=== PATIENT | female | born 1950 | race Caucasian/White ===

== ENCOUNTER 2016-07-13 07:07 | Day surgery (SDC) | payer BC ==
[~2016-07-13] VITALS: Ht 160 cm; Wt 100.0 kg
[2016-07-13] VITALS (13 sets, daily range): BP systolic 106–135; BP diastolic 56–75; PULSE 77–92; TEMP 97.2–98.4
[~2016-07-13 07:07] MED LIST: ALBUTEROL0.09 MG/A1 IH; AMARYL2 MG PO; AMARYL4 MG PO; ASPIRIN 32325 MG/TA1 PO; ASPIRIN E.C. 8181 MG PO; AZITHROMYCIN PO; BENICAR PO; BLOOD PRESSURE PILL; CALCARB 600 W/V1 TA1 PO; CALCIUM CARBONATE; CIPRO 500MG TA500 MG PO; CIPROFLOXACIN PO; CLARITIN; CLARITIN-D 10 M1 T24 PO; COMPLETE VITAMI PO; EFFEXOR 75M75 MG/TAB PO; FISH OIL CONC1000 MG PO; FLAGYL500 MG PO; FLOMAX 0.40.4 MG/CAP PO; FORTAMET1000 MG PO; GLUCOPHAGE1000 MG PO; JANUVIA 100MG100 MG PO; LANTUS100 U/ML SQ; LASIX 20MG TABL20 MG PO; LEVAQUIN 5500 MG/TA1 PO; MASON NATURAL1200 MG PO; NATURAL IRON65 MG PO; NORCO 325 MG-51 TAB PO; ONE DAILY MULTI1 TA1 PO; PERCOCET 325 MG1 TA2 PO; PREDNISONE20 MG PO; PRILOSEC 20MG20 MG PO; PRILOSEC10 MG/Pack PO; PROAIR HFA0.09 MG/AC IH; SINGULAIR 110 MG/TAB PO; TYLENOL 325MG325 MG PO; ULTRAM 50MG TAB50 MG PO; ZANTAC 150MG T150 MG PO; ZOCOR 40MG40 MG PO; ZOCOR40 MG PO; ZOFRAN 4MG T4 MG/TAB PO
[2016-07-13 07:51] LABS: HEMATOCRIT 38.2 % (37.0-47.0); HEMOGLOBIN 12.3 g/dl (12.5-16.0); MEAN CELL VOLUME 85 fl (80.0-100.0); MEAN CORPUSCULAR HEMOGLOBIN 27 pg (27.0-31.0); MEAN CORPUSCULAR HGB CONC 32 g/dl (33.0-37.0); MEAN PLATELET VOLUME 9.5 fl (7.4-10.4); PLATELET COUNT 204 K/mm3 (130-400); WHITE BLOOD COUNT 5.3 K/mm3 (4.8-10.8)
[2016-07-13 07:56] LABS: INR 1.1 (0.8-3.0); PROTHROMBIN TIME 12.4 SECONDS (9.7-12.8)
[2016-07-13 08:23] LABS: CALCIUM 9.7 mg/dL (8.4-10.2); CREATININE, serum 0.88 mg/dL (0.52-1.25); POTASSIUM 4.4 mmol/L (3.4-5.0)
[2016-07-13] MEDS ORDERED: ZYRTEC 10MG10 MG PO (08:34)
[2016-07-13] MEDS ORDERED: LEVEMIR FLEX100 U/ML SQ (08:39)
[2016-07-13] MEDS ORDERED: VICTOZA6 MG/ML SQ (08:40)
[2016-07-13] MEDS ORDERED: BENICAR 20MG TA20 MG PO (08:41)
[2016-07-13] MEDS ORDERED: TOPROL XL 25MG25 MG PO (08:46)
== END 2016-07-13 15:23 | disposition home or self-care (01) ==
LOC: COL.RAD 07:07
PROVIDERS: Internal Medicine Cardiovascular Disease
DX: I25.10 Atherosclerotic heart disease of native coronary artery without angina pectoris (principal); R94.31 Abnormal electrocardiogram [ECG] [EKG]; R07.89 Other chest pain; F32.9 Major depressive disorder, single episode, unspecified; I47.1 Supraventricular tachycardia; E11.319 Type 2 diabetes mellitus with unspecified diabetic retinopathy without macular edema; I08.0 Rheumatic disorders of both mitral and aortic valves; Z87.19 Personal history of other diseases of the digestive system; Z85.828 Personal history of other malignant neoplasm of skin; E78.2 Mixed hyperlipidemia; I10 Essential (primary) hypertension; M19.90 Unspecified osteoarthritis, unspecified site; E55.9 Vitamin D deficiency, unspecified; Z96.641 Presence of right artificial hip joint; Z79.82 Long term (current) use of aspirin; Z79.899 Other long term (current) drug therapy; Z79.84 Long term (current) use of oral hypoglycemic drugs; Z79.4 Long term (current) use of insulin; Z87.891 Personal history of nicotine dependence
CPT/HCPCS: C1760; J2250; J3010; Q9967

== ENCOUNTER → 2017-10-04 | Outpatient (CLI) | payer MEDICARE, OTHER ==
[~2017-10-04] MED LIST changes: +BENICAR 20MG TA20 MG PO; +LEVEMIR FLEX100 U/ML SQ; +TOPROL XL 25MG25 MG PO; +VICTOZA6 MG/ML SQ; +ZYRTEC 10MG10 MG PO
== END ==
LOC: COL.RAD 09:45
DX: Z01.812 Encounter for preprocedural laboratory examination (principal); M99.71 Connective tissue and disc stenosis of intervertebral foramina of cervical region; M50.23 Other cervical disc displacement, cervicothoracic region; M47.812 Spondylosis without myelopathy or radiculopathy, cervical region; M48.04 Spinal stenosis, thoracic region; Z96.7 Presence of other bone and tendon implants
CPT/HCPCS: A9585

== ENCOUNTER 2019-01-26 14:46 | Emergency (ER) | payer MEDICARE, OTHER ==
[~2019-01-26] VITALS: Ht 160 cm; Wt 93.6 kg
[~2019-01-26 14:46] MED LIST changes: +BUSPAR10 MG PO; +BYDUREON PEN2 MG SQ; +CALTRATE-600 W600 MG PO; +FOLIC ACID 40400 MCG PO; +TOPROL XL 50MG50 MG PO; +VITAMIN C500 MG PO
[2019-01-26 14:53] VITALS: TEMP 97.6
[2019-01-26 15:44] LABS: BASO % 0.3 % (0.0-2.0); EOS % 0.3 % (0-4.0); GRAN # 6.9 (1.4-6.5); HEMOGLOBIN 10.1 g/dl (12.5-16.0); LYMPH # 0.5 (1.2-3.4); LYMPH % 6.5 % (20.0-51.0); MEAN CELL VOLUME 81 fl (80.0-100.0); MEAN CORPUSCULAR HEMOGLOBIN 24 pg (27.0-31.0); MEAN CORPUSCULAR HGB CONC 30 g/dl (33.0-37.0); MEAN PLATELET VOLUME 9.4 fl (7.4-10.4); MONO # 0.5 (0.1-0.6); MONO % 6.6 % (1.7-9.3); PLATELET COUNT 192 K/mm3 (130-400); RED BLOOD COUNT 4.14 M/mm3 (4.10-5.30); REDCELL DISTRIBUTION WIDTH-CV 17.2 % (11.5-14.5)
[2019-01-26 15:46] LABS: HEMATOCRIT 33.4 % (37.0-47.0)
[2019-01-26 15:54] LABS: ALBUMIN 4.1 gm/dL (3.5-5.0); BILIRUBIN,TOTAL 0.4 mg/dL (0.0-1.0); CALCIUM 9.2 mg/dL (8.4-10.2); CREATININE, serum 0.88 (0.52-1.25); POTASSIUM 4.1 mmol/L (3.4-5.0); TOTAL PROTEIN 7.5 gm/dL (6.4-8.2)
[2019-01-26] MEDS ORDERED: BACTRIM DS 8001 TAB PO (18:08)
[2019-01-26 18:31] VITALS: BP 103/48; PULSE 93
== END 2019-01-26 18:31 | disposition home or self-care (01) ==
LOC: COL.ER 14:46
PROVIDERS: Emergency Medicine
DX: M96.842 Postprocedural seroma of a musculoskeletal structure following a musculoskeletal system procedure (principal); M25.552 Pain in left hip; E11.9 Type 2 diabetes mellitus without complications; E78.5 Hyperlipidemia, unspecified; I10 Essential (primary) hypertension; Z90.710 Acquired absence of both cervix and uterus; Z98.890 Other specified postprocedural states; Z79.82 Long term (current) use of aspirin; Z79.4 Long term (current) use of insulin; Z96.642 Presence of left artificial hip joint
CPT/HCPCS: J1170; J2405; J7030

== ENCOUNTER 2019-02-04 09:58 | Outpatient (CLI) | payer MEDICARE, OTHER ==
[~2019-02-04] VITALS: Ht 160 cm; Wt 97.0 kg
[~2019-02-04 09:58] MED LIST changes: +BACTRIM DS 8001 TAB PO
[2019-02-04 10:08] VITALS: BP 126/61; PULSE 87; TEMP 98.4
[2019-02-04] MEDS ORDERED: ROCEPHIN 2GM VIAL21 IJ (11:06)
[2019-02-04] MEDS ORDERED: ULTRAM 50MG TAB50 MG PO (11:07)
[2019-02-04] MEDS ORDERED: ROXICODONE 55 MG/TAB PO (11:08)
[2019-02-04] MEDS ORDERED: NAPROSYN500 MG PO (11:09)
[2019-02-04] MEDS ORDERED: PRILOSEC 20MG20 MG PO (11:11)
[2019-02-04] MEDS ORDERED: TYLENOL 500MG500 MG PO (11:12)
--- NOTE | 2019-02-04 11:17 | NUR ---
Pt clarence PICC placement well. Pt discharged per w/c with .
== END 2019-02-04 11:17 | disposition home or self-care (01) ==
LOC: EUO 09:58
DX: Z45.2 Encounter for adjustment and management of vascular access device (principal); T84.52XA Infection and inflammatory reaction due to internal left hip prosthesis, initial encounter
CPT/HCPCS: C1751